=== PATIENT | male | born 1970 | race Caucasian/White ===

== ENCOUNTER → 2018-11-28 | Outpatient (CLI) | payer OTHER ==
--- NOTE | 2018-11-28 16:45 | EXE ---
[facility] [employer] [place] [address] STRESS ECHOCARDIOGRAM Name: JOSE PRO MARISEL Room #: REG CL [place]#: [id number] ������������� Admission: 11/28/18 ������������� Attend Phys: Justin Goetz MD Discharge: ��� ������������� ��� Date of : 68 Date of Service: 11/28/18 1644 �� Report #: [id number] �������� ��������������������������������������������[id number] THIS REPORT FOR: //name// APPROVED REPORT Study performed: 11/28/2018 15:00:21 Exam: Stress Echocardiogram Indication: CAD , Hyperlipidemia, Hypertension Patient Location: Out-Patient Stress Nurse: Alicia Brady RN Room #: Echo lab 2 Status: routine Ht: 6 ft 0 in HR: 67 bpm BP: 124/76 mmHg Rhythm: NSR Medical History Medical History: HTN, Hyperlipidemia Allergies: No known drug allergies Cardiac Risk Factors: HTN, Hyperlipidemia, FHX of CAD Exercise History: Physically active Procedure The patient underwent an Exercise Stress Test using the Evaristo Protocol. Blood pressure, heart rate, and EKG were monitored. An Echocardiogram was performed by service technician in four stages in quad fashion. At peak stress, four selected images were obtained and placed side by side with resting images for comparison. Stress Test Details Stress Test: Exercise stress testing was performed using a Evaristo protocol. HR Resting HR: 67 bpm Max Heart Rate (APMHR): 171 bpm Max HR Achieved: 173 bpm Target HR (85% APMHR): 145 bpm % of APMHR: 101 Recovery HR: 107 bpm HR response to stress: Normal HR response to stress BP Resting BP: 134/76 mmHg Max BP: 200/90 mmHg Recovery BP: 146/84 mmHg [facility] [email or web address] [address] STRESS ECHOCARDIOGRAM Name: JOSE PRO Room #: REG CL [facility]#: [id number] ������������� Admission: 11/28/18 ������������� Attend Phys: Justin Goetz MD Discharge: ��� ������������� ��� Date of : 68 Date of Service: 11/28/18 1644 �� Report #: [id number] �������� ��������������������������������������������[id number] BP response to stress: Normal blood pressure response to stress. ECG Resting ECG: Sinus Rhythm Stress ECG: Sinus Rhythm, nonspecific ST-T abnormalities ST Change: Non-ischemic Clinical Reason for Termination: Maximal effort Exercise duration: 13 min 30 sec Highest Stage Achieved: Stage 5: 5.0 mph at 18% grade. Exercise capacity: 17.5 METs Overall Exercise Capacity for Age: Good Pre-Stress Echo The resting Echocardiogram showed normal left ventricular contractility with an estimated Ejection Fraction of about >55%. Normal wall motion in all segments on baseline images. Post-Stress Echo The stress Echocardiogram showed normal left ventricular contractility with an estimated Ejection Fraction of about >70%. Normal augmentation of wall motion in all segments on post stress images. Clinical Normal augmentation of myocardial wall segments using a 17 segment model. No clinical or ECG evidence for ischemia. Conclusion Clinical Response: Non-ischemic Exercise Capacity: Superior Stress ECG Response: Non-ischemic Stress Echo Images: Non-ischemic The left ventricle is normal in size and wall thickness in both the rest and stress images. Other Information Study Quality: Adequate <Conclusion> [facility] [address] [place] [address] STRESS ECHOCARDIOGRAM Name: INOCENCIAJOSEETHEL JOINER Room #: REG CL [employer]#: [id number] ������������� Admission: 11/28/18 ������������� Attend Phys: Justin Goetz MD Discharge: ��� ������������� ��� Date of : 68 Date of Service: 11/28/181643 �� Report #: [id number] �������� ��������������������������������������������[id number] The left ventricle is normal in size and wall thickness in both the rest and stress images. ��������������������������������������������� <ELECTRONICALLY SIGNED> ���������������������������������������� By: Justin Goetz MD ��������������������������������������������� 11/28/184 43 43 Justin Goetz MD /INF
== END ==
LOC: CV 10:20
DX: I25.10 Atherosclerotic heart disease of native coronary artery without angina pectoris (principal); E78.5 Hyperlipidemia, unspecified; I10 Essential (primary) hypertension; Z82.49 Family history of ischemic heart disease and other diseases of the circulatory system

== ENCOUNTER → 2020-12-26 | Outpatient (CLI) | payer OTHER | LOC: SJCVCIMAG 12-03 09:08 | PROVIDERS: ATTEND Internal Medicine Cardiovascular Disease | DX: I08.2 Rheumatic disorders of both aortic and tricuspid valves (principal); E11.9 Type 2 diabetes mellitus without complications; J44.9 Chronic obstructive pulmonary disease, unspecified ==